=== PATIENT | male | born 1960 | race Caucasian/White ===

== ENCOUNTER → 2019-03-09 | Outpatient (CLI) | payer OTHER ==
--- NOTE | 2019-03-10 18:45 | PFR/MVV ---
[facility] [place] [address] PULMONARY FUNCTION MVV/REPORT Name: YOUNG CADE Room #: REG LADY Meza#: [id number] Admission: 03/09/19 Attend Phys: Ryne Acevedo MD Discharge: Date of : 58 Report #: [id number] THIS REPORT FOR: //name// >> SPIROMETRY: (BTPS) Height: 66 in cm Weight: 161 lbs kg Exam Date: 03/09/19 PRE-RX POST-RX PRED BEST %PRED BEST %PRED %CHG FVC LITERS . 4.05 . 2.13 . 53 . 2.08 . 51 . -3 FEV1 LITERS . 2.92 . 1.28 . 44 . 1.32 . 45 . 3 FEV1/FVC % . 72 . 60 . 83 . 64 . 88 . 6 CIZ34-58% L/Sec . 2.96 . 0.53 . 18 . 0.60 . 20 . 13 PEF L/SEC . 7.70 . 2.46 . 32 . 2.89 . 38 . 17 FEF50/FIF50 UNITLESS . . 0.79 . . 1.11 . . 41 MVV L/Min . 128 . 9 . 7 f 1/Min . . 75 . >> LUNG VOLUMES: (BTPS) PRE-RX POST-RX PRED AVG %PRED AVG %PRED %CHG VC Liters . 4.05 . 2.50 . 62 . . . TLC Liters . 5.72 . 4.26 . 75 . . . RV Liters . 2.08 . 1.76 . 85 . . . RV/TLC % . 37 . 41 . 112 . . . FRC PL Liters . 3.21 . 2.00 . 62 . . . FRC N2 Liters . . . . . . ERV Liters . 1.38 . 0.24 . 17 . . . IC Liters . 2.75 . 2.37 . 86 . . . >> DIFFUSION: DLCO ml/Min/mmHg . 21.1 . 4.6 . 22 . . . DL Roderick ml/Min/mmHg . 21.1 . 4.6 . 22 . . . DLCO/VA ml/Min/mmHg . 3.84 . 2.26 . 59 . . . VA Liters . 6.34 . 2.01 . 32 . . . COMMENTS: COMMENTS: >> RESISTANCE: [facility] [address] [place] [address] PULMONARY FUNCTION MVV/REPORT Name: YOUNG CADE Room #: REG Anastacia Reyes.#: [id number] Admission: 03/09/19 Attend Phys: Ryne Acevedo MD Discharge: Date of : 58 Report #: [id number] PRE-RX PRED AVG %PRED Raw Total cmH20/L/Sec . . 2.94 . Raw Insp cmH20/L/Sec . . 3.75 . Raw Exp cmH20/L/Sec . . 4.59 . Raw cmH20/L/Sec . 1.44 . 3.37 . 234 Gaw L/Sec/cmH20 . 0.771 . 0.297 . 39 sRaw cmH20 Sec . 4.62 . 11.58 . 251 sGaw l/cmH20 Sec . 0.216 . 0.086 . 40 Vtq Liters . . 3.44 . # = OUTSIDE 95% CONFIDENCE INTERVAL CALIBRATION: PRED: 3.00 ACTUAL: EXP 3.01 INSP 3.02 [facility] N-[facility]04-4 >> INTERPRETATION/IMPRESSION: CC: Ryne Acevedo MD DATE OF SERVICE: 03/09/2019 Spirometric examination shows severe airflow obstruction. There was no significant bronchodilator response. Small airways disease is suggested. Total lung capacity is mildly reduced measuring 75% predicted. Diffusion capacity markedly reduced measuring 22% predicted, it is mildly reduced measuring 59% predicted, corrected for alveolar volume. Flow volume loop is consistent with mixed obstructive and restrictive ventilatory defect. 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 Mild restrictive ventilatory defect is also suggested. Clinical correlation is recommended. <ELECTRONICALLY SIGNED> By: Jhony Wilson MD 03/10/19 1845 Jhony Wilson MD /nt
== END ==
LOC: PUL 09:55
DX: J98.4 Other disorders of lung (principal)